=== PATIENT | male | born 1990 | race Caucasian/White ===

== ENCOUNTER 2019-02-11 22:00 | Emergency (ER) | payer SELFPAY ==
[~2019-02-11] VITALS: Ht 177.8 cm; Wt 104.3 kg
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
--- NOTE | 2019-02-12 01:26 | NUR ---
Patient discharged to home in stable condition. Written and verbal after care instructions given. Patient verbalizes understanding of instruction.IV removed. Catheter intact and site benign. Pressure and 4x4 applied to site. No bleeding noted.Pt ambulatory with a steady gait
[2019-02-12 01:27] VITALS: BP 138/83
== END 2019-02-12 01:27 | disposition home or self-care (01) ==
LOC: ER 22:04
DX: F19.10 Other psychoactive substance abuse, uncomplicated (principal)